=== PATIENT | male | born 1980 | race Caucasian/White ===

== ENCOUNTER 2016-10-21 08:53 | Emergency (ER) | payer OTHER ==
--- NOTE | 2016-10-21 10:13 | ED ORDER SUMMARY ---
..... Patient: ELENITA STEPHENS OrderSheet [facility] VisitID: [id number] [place] [address] 36y, M Registration Date/Time: 10/21/2016 ORDER SHEET Weight: 136.0 kg (stated) Allergies: None GENERAL ORDERS: Business Process Engineer (Continuous) (09:10/21/2016 JBoardley R.N. per protocol) (9:01 JBoardley R.N.) Chest 1V Urgent (09:10/21/2016 JBoardley R.N. per protocol) (Ack 9:03 PWeiler ER Tech1) (9:15 PWeiler ER Tech1) Cardiac Panel Stat (09:10/21/2016 JBoardley R.N. per protocol) (Ack 9:03 PWeiler ER Tech1) (9:06 JBoardley R.N.) (Cancelled: Duplicate Order9:11 Ash Cui) Oxygen (2 L/min) (NC) (09:01 10/21/2016 JBoardley R.N. per protocol) (9:01 JBoardley R.N.) EKG - ER Stat (09:10/21/2016 JBoardley R.N. per protocol) (9:01 JBoardley R.N.) Pulse oximeter (09:10/21/2016 JBoardley R.N. per protocol) (9:01 JBoardley R.N.) CBC w Diff Urgent (09:12 10/21/2016 Ash Cui) (Ack 9:15 PWeiler ER Tech1) (9:18 JBoardley R.N.) CMP Urgent (09:12 10/21/2016 Ash Cui) (Ack 9:15 PWeiler ER Tech1) (9:18 JBoardley R.N.) Troponin-I Urgent (09:12 10/21/2016 Ash Cui) (Ack 9:15 PWeiler ER Tech1) (9:18 JBoardley R.N.) Lipase Urgent (09:23 10/21/2016 Ash Cui) (Ack 9:26 PWeiler ER Tech1) (9:31 PWeiler ER Tech1) MEDICATION ORDERS: GI Cocktail WHITE PO 30 mL (NOW) (09:12 10/21/2016 Ash Cui) (Ack 9:14 JBoardley R.N.) (9:19 JBoardley R.N.) IV FLUIDS: IV Saline Lock (09:02 10/21/2016 JBoardley R.N. per protocol) (9:06 JBoardley R.N.) ORDER SHEET NOTES: [Electronically signed by Harry Yoder Dr. (10:10/21/2016)] [Electronically signed by Leif Mcconnell R.N. (10:10/21/2016)] [Electronically locked/signed by Leif Mcconnell R.N. (10:10/21/2016)]
--- NOTE | 2016-10-21 10:13 | ED CLINICAL REPORT ---
Clinical Report - Physicians/Mid Levels [facility] [address] [place] [address] 10/21/2016 8:53 Patient: ELENITA STEPHENS Time Seen: 851. Arrived- By ambulance. Historian- patient and EMS personnel. HISTORY OF PRESENT ILLNESS Chief Complaint: CHEST PAIN. At its maximum, severity described as mild. When seen in the E.D., severity described as mild. Modifying factors. Not worsened by anything. Not relieved by anything. It is described as dull and it is described as located in the upper back. No radiation. This started yesterday 4 PM and is still present (unchanged). It was abrupt in onset and has been constant but is not gone now. The patient cannot recall the circumstances at the onset. No nausea, vomiting, difficulty breathing or diaphoresis. (reports no recent trauma, surgeries, hemoptysis, unilateral leg swelling, or prolonged immobilization.). No additional chest pain. Similar symptoms previously: Once. ( was told it was anxiety at [facility]). Recent medical care: Not recently seen/assessed. REVIEW OF SYSTEMS The patient has had constant abdominal pain (chronic). The pain is described as located in the epigastrium. This abdominal pain is similar to previous symptoms. All systems otherwise negative, except as recorded above. PAST HISTORY Denies the following risk factors for DVT/PE - history of DVT and pulmonary embolism, recent surgery, recent [place] and congestive heart failure. Denies the following risk factors for DVT/PE - cancer, clotting disorder, estrogens, obesity and immobility. Denies the following risk factors for DVT/PE - advanced in age and vena cava filter. SOCIAL HISTORY Smoker- current status unknown. History of occasional drug use: marijuana. No alcohol use. No recent travel. Is a local resident. FAMILY HISTORY No history of heart disease or aortic aneurysm or dissection. grandfather with hx of early onset CA. ADDITIONAL NOTES The nursing notes have been reviewed. PHYSICAL EXAM Vital Signs: 10/21/2016 08:52 BP: 126/63. HR: 71. RR: 18. O2 saturation: 99%. Temp: 98.2 F. Pain level now: 310. Appearance: Alert. Oriented X3. No acute distress. Eyes: Pupils equal, round and reactive to light. Eyes normal inspection. ENT: Ears normal. Nose normal. Pharynx normal. Neck: Normal inspection. Neck supple. CVS: Normal heart rate and rhythm. Heart sounds normal. Pulses normal. No decreased pulses. Respiratory: No respiratory distress. Breath sounds normal. Chest nontender. No rales, rhonchi or wheezes. Abdomen: Soft. Mild tenderness in the epigastric area. No guarding, rebound tenderness or Martinez's, obturator or psoas sign present. Bowel sounds normal. No organomegaly. No mass. Back: Normal external inspection. (no midline tenderness. Bilateral upper paraspinal muscle spasms and tenderness. No overlying skin changes. No crepitus. No step-offs.). Skin: Skin warm and dry. Normal skin color. No rash. Normal skin turgor. Extremities: Extremities exhibit normal ROM. No lower extremity edema. LABS, X-RAYS, AND EKG EKG: No acute process. No acute ischemia. Normal EKG. Normal sinus rhythm. Rate: 72. Normal P waves. Normal GENNARO. Normal QRS complex. Normal axis. Normal ST and T waves, QT and QTc. Prior EKG unavailable. The study has been interpreted contemporaneously. The study has been independently viewed by me. The EKG appears to be a good tracing. Chest X-ray: No acute disease. Normal lung markings present. No infiltrate. (no apical capping. Mediastinum is normal with.). Views: AP (portable). The X-rays were independently viewed by me, interpreted by the radiologist and discussed with the radiologist. Laboratory Tests: CBC w Diff: (ALYSSA: 10/21/2016 09:00) ( MsgRcvd 10/21/2016 09:11) Final results Test Result Flag Units (Reference) WHITE BLOOD COUNT 4.8 K/uL (4.5-11.5) RED BLOOD COUNT 4.42 L M/uL (4.50-5.90) HEMOGLOBIN 13.8 gm/dL (13.5-17.5) HEMATOCRIT 39.8 L % (41.0-53.0) MEAN CELL VOLUME 90 fL (80-100) MEAN CORPUSCULAR HGB 31 pg (26-34) MEAN CORPUSCULAR HGB CONC 35 g/dL (31-37) RED CELL DISTRIBUTION WIDTH 11.9 % (11.6-14.8) PLATELET COUNT 217 K/uL (150-400) NEUTROPHIL % 60.7 % (50-75) LYMPH % 27.1 % (25-40) MONO % 8.5 % (3-14) EOSINOPHIL % 3.1 % (0-4) BASOPHIL % 0.6 % (0-2) CHEM 13 PANEL: (ALYSSA: 10/21/2016 09:00) ( MsgRcvd 10/21/2016 09:40) Final results Test Result Flag Units (Reference) GLUCOSE 133 H mg/dL (70-110) BUN 14 mg/dL (7-18) CREATININE 1.0 mg/dL (0.6-1.3) Estimated GFR >60 mL/min Estimated GFR- >60 mL/min Note: Persistent reduction over 3 months in eGFR<60 mL/min/1.73 m2 defines CKD. Patients with eGFR values>=60 mL/min/1.73 m2 may also have CKD if evidence ofpersistent proteinuria. Additional information may be foundat www.kidney.org. SODIUM 141 mmol/L (136-145) POTASSIUM 4.0 mmol/L (3.5-5.1) CHLORIDE 105 mmol/L (98-107) CARBON DIOXIDE 25 mmol/L (21-32) CALCIUM 8.7 mg/dL (8.5-10.1) TOTAL PROTEIN 7.2 g/dL (6.4-8.2) ALBUMIN 3.8 g/dL (3.3-5.0) BILIRUBIN, TOTAL 0.7 mg/dL (0.0-1.0) ALKALINE PHOSPHATASE 68 U/L (46-116) AST (SGOT) 26 U/L (15-37) ALT (SGPT) 75 U/L (12-78) MAGNESIUM 1.7 L mg/dL (1.8-2.4) CPK 169 U/L (24-260) TROPONIN I <0.05 L ng/mL (0.00-1.5) TROPONIN REFERENCE RANGE:<0.1 NEGATIVE0.1-1.5 INDETERMINANT>1.5 POSITIVE LIPASE 150 U/L (73-393) . PROGRESS AND PROCEDURES Course of Care: the patient is a pleasant 36-year-old male presenting for evaluation of chest pain and upper back pain. At this time differential diagnosis includes pneumonia, esophagitis, reflux, acute myocardial infarction, pulmonary embolism. Patient isn't currently PRC negative. Patient is resting in bed and in no acute distress. Because of the patient's symptoms, we'll provide the patient with a GI cocktail for regards to potential reflux-type of symptoms. Chest x-ray and laboratory studies and EKG up and ordered for evaluation of other etiologies of patient's discomfort at this time. Vital signs of been reviewed on triage and noted to be unremarkable. Patient is agreeable to the treatment and plan. The patient's workup was remarkable for the findings above. No signs of elevation in troponin. Chest x-rays clear. EKG also does not show any signs of acute ischemia or strain. Patient is noted to be PERC negative. Do not feel further workup for pulmonary embolism is required at this time. Low clinical suspicion for aortic dissection. Patient was reevaluated after the laboratory studies and imaging has been performed. Head discussion with patient in regards his workup in the emergency department. Patient expressed relief when discussing the normal laboratory results and imaging as well as EKG. Patient states that he did not feel the GI cocktail helped however states that his pain is improved since being here.. The patient expressed concerns for the hospital bill. Patient states that he did not want to come here via ambulance and wanted to be evaluated in a clinic setting. Offered patient contact with the financial office. t this time will be respectful for the patient's concern for his bill. Recommended patient have outpatient Evaluation and continuation of care. Discussed with the patient is workup here in the emergency department including diagnosis, home care, follow-up, and return precautions. All questions have been answered. The patient expressed understanding of these instructions and was agreeable to them. CLINICAL IMPRESSION 10/21/2016 09:40 BP: 118/68. HR: 74. RR: 14. O2 saturation: 100%. Blood pressure normal. Oxygen saturation normal. Atypical chest pain .12 lead EKG performed. INSTRUCTIONS Warnings: GENERAL WARNINGS: Return or contact your physician immediately if your condition worsens or changes unexpectedly, if not improving as expected, or if other problems arise. SPECIFICALLY, return if you develop chest, neck, jaw, shoulder, arm, or back pain, difficulty breathing, a fluttering sensation in your chest, lightheadedness, fainting, excessive fatigue, or sudden sweating. Your Current Medications: CONTINUE TAKING THE FOLLOWING MEDICATIONS: None*. Prescription Medications: Flexeril 10 mg: take 1 orally every 8 hours as needed for muscle spasm or pain. Dispense thirty (30). No refills. Substitution is permissible. Follow-up: Return to the emergency department as needed. Follow up with your doctor in three days. Reason for referral: recheck today's concerns. Summary of care provided to patient via paper. Screening today revealed the patient's blood pressure to be in the normal range. The patient should follow up with a primary care provider for blood pressure management. Understanding of the discharge instructions verbalized by patient. (Electronically signed by Harry Yoder Dr. 10/21/2016 10:21)
--- NOTE | 2016-10-21 10:13 | ED ORDER SUMMARY ---
..... Patient: ELENITA STEPHENS OrderSheet [facility] VisitID: [id number] [place] [address] 36y, M Registration Date/Time: 10/21/2016 ORDER SHEET Weight: 136.0 kg (stated) Allergies: None GENERAL ORDERS: Bezel Cutter (Continuous) (09:10/21/2016 JBoardley R.N. per protocol) (9:01 JBoardley R.N.) Chest 1V Urgent (09:10/21/2016 JBoardley R.N. per protocol) (Ack 9:03 PWeiler ER Tech1) (9:15 PWeiler ER Tech1) Cardiac Panel Stat (09:10/21/2016 JBoardley R.N. per protocol) (Ack 9:03 PWeiler ER Tech1) (9:06 JBoardley R.N.) (Cancelled: Duplicate Order9:11 Ash Cui) Oxygen (2 L/min) (NC) (09:01 10/21/2016 JBoardley R.N. per protocol) (9:01 JBoardley R.N.) EKG - ER Stat (09:10/21/2016 JBoardley R.N. per protocol) (9:01 JBoardley R.N.) Pulse oximeter (09:10/21/2016 JBoardley R.N. per protocol) (9:01 JBoardley R.N.) CBC w Diff Urgent (09:12 10/21/2016 Ash Cui) (Ack 9:15 PWeiler ER Tech1) (9:18 JBoardley R.N.) CMP Urgent (09:12 10/21/2016 Ash Cui) (Ack 9:15 PWeiler ER Tech1) (9:18 JBoardley R.N.) Troponin-I Urgent (09:12 10/21/2016 Ash Cui) (Ack 9:15 PWeiler ER Tech1) (9:18 JBoardley R.N.) Lipase Urgent (09:23 10/21/2016 Ash Cui) (Ack 9:26 PWeiler ER Tech1) (9:31 PWeiler ER Tech1) MEDICATION ORDERS: GI Cocktail WHITE PO 30 mL (NOW) (09:12 10/21/2016 Ash Cui) (Ack 9:14 JBoardley R.N.) (9:19 JBoardley R.N.) IV FLUIDS: IV Saline Lock (09:02 10/21/2016 JBoardley R.N. per protocol) (9:06 JBoardley R.N.) ORDER SHEET NOTES: [Electronically signed by Harry Yoder Dr. (10:10/21/2016)] [Electronically signed by Leif Mcconnell R.N. (10:10/21/2016)] [Electronically locked/signed by Leif Mcconnell R.N. (10:10/21/2016)]
--- NOTE | 2016-10-21 10:13 | ED NURSING NOTES ---
Clinical Report - Nurses [facility] [address] [place] [address] 10/21/2016 8:53 Patient: ELENITA STEPHENS TRIAGE Triage time 08:52 Oct 21 2016. Acuity: LEVEL 3. Chief Complaint: CHEST PAIN. 08:53 10/21/16. 08:53 10/21/16. Alert. No acute distress. ( Pt states he has constant discomfort in his chest and back. Pt states he has a history of anxiety.). SEPSIS SCREEN: Sepsis Screen. Negative (no infection suspected/documented). --08:59 Leif Mcconnell R.N. 08:52 10/21/16. BP: 126/63. HR: 71. RR: 18. O2 saturation: 99% on room air. Temp: 98.2 F (oral). Pain level now: 07/25. --08:59 Leif Mcconnell R.N. Weight: 136 kg stated. Height/Length: 75 inches Per Patient. BMI: 37.5. --08:57 Leif Mcconnell R.N. Medications None. --08:57 Leif Mcconnell R.N. Medication/allergy information source: the patient and EMS. --08:59 Leif Mcconnell R.N. Allergies None. --08:58 Leif Mcconnell R.N. History Arrived by EMS. Historian: patient. Unaccompanied. Primary physician (NONE). 08:53 10/21/16. This started yesterday. Onset. (at 1600). The patient has had difficulty breathing and nausea. Reports experiencing sweating episodes. No vomiting. Treatment FORESTRY PATROLMAN: (NTG and ASA). PAST MEDICAL HX: Immunizations: status is unknown. SOCIAL HX: Current every day heavy tobacco smoker (cigarette)- less than 1 pack per day. Occasional alcohol use; consumes 12-pack of beer a week. History of occasional drug use: marijuana. FALL RISK ASSESSMENT: Fall risk assessment completed. No fall risk identified. NUTRITIONAL RISK ASSESSMENT: The nutritional risk assessment revealed no deficiencies. FUNCTIONAL ASSESSMENT: Functional assessment: no impairments noted. LEARNING NEEDS ASSESSMENT: The learning needs assessment revealed no barriers. SKIN INTEGRITY ASSESSMENT: Skin integrity risk assessment completed. No skin integrity risk identified. --08:59 Leif Mcconnell R.N. Treatment FORESTRY PATROLMAN: See EMS report. ( NTG SL, ASA, Right Hand IV 18 gauge IV placed by EMS). --09:00 Leif Mcconnell R.N. PROBLEMS: Pneumothorax. Stabbing. Anxiety disorder. --08:59 Leif Mcconnell R.N. ADDITIONAL SURGERIES: no known surgeries. Assessment 08:53 10/21/16. --08:59 Leif Mcconnell R.N. Interventions 08:53 10/21/16. 08:53 10/21/16. ID and allergy band on patient. To treatment room. --08:59 Leif Mcconnell R.N. PHYSICAL ASSESSMENT 08:59 10/21/16. To room via stretcher. GENERAL / NEURO / PSYCH: Alert. Oriented X 4. Appears in no acute distress. RESPIRATORY: Respirations not labored. CVS: Normal sinus rhythm noted. Capillary refill less than 2 seconds. SKIN: Skin is warm and dry. --08:59 Leif Mcconnell R.N. NURSING PROGRESS NOTES 08:56 10/21/2016 Site #1 started prior to arrival by EMS via IV in the right hand with an 18g angiocath. Blood drawn: rainbow set. --09:06 Leif Mcconnell R.N. 08:59 10/21/16. EKG time: (0859). EKG was ordered, performed by a tech and shown to the ED physician. Two patient identifiers checked. Call light placed in reach. Side rails up x 2. Bed placed in lowest position. Brakes of bed on. Patient ready for evaluation- chart flagged and notification provided. --08:59 Leif Mcconnell R.N. 09:00 10/21/16. The plan of care for this patient has been created. Oxygen administered at 2 liters. campus monitor, pulse oximeter and NIBP monitor placed on patient; monitor alarms on. Patient gowned. Head of bed elevated. Reassurance given. --09:00 Leif Mcconnell R.N. 09:19 10/21/2016 GI COCKTAIL WHITE (Simethicone) PO 30 mL given. Allergies verified and confirmed 5 rights. --09:19 Leif Mcconnell R.N. 09:19 10/21/16. Cardiac rhythm: normal sinus rhythm. --09:19 Leif Mcconnell R.N. 09:19 10/21/16. BP: 118/65. HR: 76. RR: 13. O2 saturation: 100% on nasal cannula at 2 liters/minute. --09:19 Leif Mcconnell R.N. 09:19 10/21/16. Patient informed about reason for wait and about plan of care. --09:19 Leif Mcconnell R.N. 09:41 10/21/16. Cardiac rhythm: normal sinus rhythm. --09:41 Leif Mcconnell R.N. 09:40 10/21/16. BP: 118/68. HR: 74. RR: 14. O2 saturation: 100% on nasal cannula at 2 liters/minute. --09:41 Leif Mcconnell R.N. 09:47 10/21/16. Reassessment after medication administered. He reports no complaints, he is calm and resting quietly and he has had no adverse reaction. Overall patient status is the same- he states feels the same. --09:47 Leif Mcconnell R.N. 09:47 10/21/16. Patient informed about reason for wait and about plan of care. --09:48 Leif Mcconnell R.N. 09:48 10/21/16. Patient waiting for lab results. --09:48 Leif Mcconnell R.N. DISPOSITION / DISCHARGE 10:20 10/21/2016 Site #1 removed upon discharge. Catheter intact. Bandage applied. --10:20 Leif Mcconnell R.N. 10:21 10/21/16. Cardiac rhythm: normal sinus rhythm. Condition at departure: improved. The goals identified in the patient's plan of care were met. No learning barriers present. Discharge instructions provided and reviewed with the patient. Reviewed warnings. Reviewed medication(s). Treatments reviewed. Patient verbalized understanding. Written instructions provided in Malay. The patient was discharged by the physician. He was discharged home and accompanied by family. He left the Emergency Department ambulatory and via private vehicle. Family member driving. FALL RISK ASSESSMENT: Fall risk assessment completed. No fall risk identified. --10:21 Leif Mcconnell R.N. 10:20 10/21/16. BP: 122/67. HR: 78. RR: 14. O2 saturation: 100% on room air. Temp: 98.2 F (oral). Pain level now: 05/27. --10:21 Leif Mcconnell R.N. 10:21 10/21/16. Departure time: 10:Oct 21 2016. --10:21 Leif Mcconnell R.N. Locked/Released at 10/21/2016 10:24 by Leif Mcconnell R.N.
--- NOTE | 2016-10-21 10:13 | ED NURSING NOTES ---
Clinical Report - Nurses [facility] [address] [place] [address] 10/21/2016 8:53 Patient: ELENITA STEPHENS TRIAGE Triage time 08:52 Oct 21 2016. Acuity: LEVEL 3. Chief Complaint: CHEST PAIN. 08:53 10/21/16. 08:53 10/21/16. Alert. No acute distress. ( Pt states he has constant discomfort in his chest and back. Pt states he has a history of anxiety.). SEPSIS SCREEN: Sepsis Screen. Negative (no infection suspected/documented). --08:59 Leif Mcconnell R.N. 08:52 10/21/16. BP: 126/63. HR: 71. RR: 18. O2 saturation: 99% on room air. Temp: 98.2 F (oral). Pain level now: 07/25. --08:59 Leif Mcconnell R.N. Weight: 136 kg stated. Height/Length: 75 inches Per Patient. BMI: 37.5. --08:57 Leif Mcconnell R.N. Medications None. --08:57 Leif Mcconnell R.N. Medication/allergy information source: the patient and EMS. --08:59 Leif Mcconnell R.N. Allergies None. --08:58 Leif Mcconnell R.N. History Arrived by EMS. Historian: patient. Unaccompanied. Primary physician (NONE). 08:53 10/21/16. This started yesterday. Onset. (at 1600). The patient has had difficulty breathing and nausea. Reports experiencing sweating episodes. No vomiting. Treatment MATERIALS HANDLING COORDINATOR: (NTG and ASA). PAST MEDICAL HX: Immunizations: status is unknown. SOCIAL HX: Current every day heavy tobacco smoker (cigarette)- less than 1 pack per day. Occasional alcohol use; consumes 12-pack of beer a week. History of occasional drug use: marijuana. FALL RISK ASSESSMENT: Fall risk assessment completed. No fall risk identified. NUTRITIONAL RISK ASSESSMENT: The nutritional risk assessment revealed no deficiencies. FUNCTIONAL ASSESSMENT: Functional assessment: no impairments noted. LEARNING NEEDS ASSESSMENT: The learning needs assessment revealed no barriers. SKIN INTEGRITY ASSESSMENT: Skin integrity risk assessment completed. No skin integrity risk identified. --08:59 Leif Mcconnell R.N. Treatment MATERIALS HANDLING COORDINATOR: See EMS report. ( NTG SL, ASA, Right Hand IV 18 gauge IV placed by EMS). --09:00 Leif Mcconnell R.N. PROBLEMS: Pneumothorax. Stabbing. Anxiety disorder. --08:59 Leif Mcconnell R.N. ADDITIONAL SURGERIES: no known surgeries. Assessment 08:53 10/21/16. --08:59 Leif Mcconnell R.N. Interventions 08:53 10/21/16. 08:53 10/21/16. ID and allergy band on patient. To treatment room. --08:59 Leif Mcconnell R.N. PHYSICAL ASSESSMENT 08:59 10/21/16. To room via stretcher. GENERAL / NEURO / PSYCH: Alert. Oriented X 4. Appears in no acute distress. RESPIRATORY: Respirations not labored. CVS: Normal sinus rhythm noted. Capillary refill less than 2 seconds. SKIN: Skin is warm and dry. --08:59 Leif Mcconnell R.N. NURSING PROGRESS NOTES 08:56 10/21/2016 Site #1 started prior to arrival by EMS via IV in the right hand with an 18g angiocath. Blood drawn: rainbow set. --09:06 Leif Mcconnell R.N. 08:59 10/21/16. EKG time: (0859). EKG was ordered, performed by a tech and shown to the ED physician. Two patient identifiers checked. Call light placed in reach. Side rails up x 2. Bed placed in lowest position. Brakes of bed on. Patient ready for evaluation- chart flagged and notification provided. --08:59 Leif Mcconnell R.N. 09:00 10/21/16. The plan of care for this patient has been created. Oxygen administered at 2 liters. cmv driver, pulse oximeter and NIBP monitor placed on patient; monitor alarms on. Patient gowned. Head of bed elevated. Reassurance given. --09:00 Leif Mcconnell R.N. 09:19 10/21/2016 GI COCKTAIL WHITE (Simethicone) PO 30 mL given. Allergies verified and confirmed 5 rights. --09:19 Leif Mcconnell R.N. 09:19 10/21/16. Cardiac rhythm: normal sinus rhythm. --09:19 Leif Mcconnell R.N. 09:19 10/21/16. BP: 118/65. HR: 76. RR: 13. O2 saturation: 100% on nasal cannula at 2 liters/minute. --09:19 Leif Mcconnell R.N. 09:19 10/21/16. Patient informed about reason for wait and about plan of care. --09:19 Leif Mcconnell R.N. 09:41 10/21/16. Cardiac rhythm: normal sinus rhythm. --09:41 Leif Mcconnell R.N. 09:40 10/21/16. BP: 118/68. HR: 74. RR: 14. O2 saturation: 100% on nasal cannula at 2 liters/minute. --09:41 Leif Mcconnell R.N. 09:47 10/21/16. Reassessment after medication administered. He reports no complaints, he is calm and resting quietly and he has had no adverse reaction. Overall patient status is the same- he states feels the same. --09:47 Leif Mcconnell R.N. 09:47 10/21/16. Patient informed about reason for wait and about plan of care. --09:48 Leif Mcconnell R.N. 09:48 10/21/16. Patient waiting for lab results. --09:48 Leif Mcconnell R.N. DISPOSITION / DISCHARGE 10:20 10/21/2016 Site #1 removed upon discharge. Catheter intact. Bandage applied. --10:20 Leif Mcconnell R.N. 10:21 10/21/16. Cardiac rhythm: normal sinus rhythm. Condition at departure: improved. The goals identified in the patient's plan of care were met. No learning barriers present. Discharge instructions provided and reviewed with the patient. Reviewed warnings. Reviewed medication(s). Treatments reviewed. Patient verbalized understanding. Written instructions provided in [place]. The patient was discharged by the physician. He was discharged home and accompanied by family. He left the Emergency Department ambulatory and via private vehicle. Family member driving. FALL RISK ASSESSMENT: Fall risk assessment completed. No fall risk identified. --10:21 Leif Mcconnell R.N. 10:20 10/21/16. BP: 122/67. HR: 78. RR: 14. O2 saturation: 100% on room air. Temp: 98.2 F (oral). Pain level now: 05/27. --10:21 Leif Mcconnell R.N. 10:21 10/21/16. Departure time: 10:Oct 21 2016. --10:21 Leif Mcconnell R.N. Locked/Released at 10/21/2016 10:24 by Leif Mcconnell R.N.
--- NOTE | 2016-10-21 10:17 | DIAGNOSTIC IMAGING REPORT ---
PROCEDURE: XR CHEST 1 VIEW INDICATION: CHEST PAIN TECHNIQUE: Portable AP view 9:11 a.m. COMPARISON: None. FINDINGS: Lungs are clear. Heart and mediastinum are normal. Thorax is normal. IMPRESSION: 1. Negative chest.
--- NOTE | 2016-10-21 10:24 | ED DISCHARGE INSTRUCTIONS ---
Patient: ELENITA STEPHENS General Instructions [facility] VisitID: [id number] [place] [address] 36y, M Registration Date/Time: 10/21/2016 10/21/2016 09:40 BP: 118/68. HR: 74. RR: 14. O2 saturation: 100%. Blood pressure normal. Oxygen saturation normal. Atypical chest pain .12 lead EKG performed. INSTRUCTIONS Warnings: GENERAL WARNINGS: Return or contact your physician immediately if your condition worsens or changes unexpectedly, if not improving as expected, or if other problems arise. SPECIFICALLY, return if you develop chest, neck, jaw, shoulder, arm, or back pain, difficulty breathing, a fluttering sensation in your chest, lightheadedness, fainting, excessive fatigue, or sudden sweating. Your Current Medications: CONTINUE TAKING THE FOLLOWING MEDICATIONS: None*. Prescription Medications: Flexeril 10 mg: take 1 orally every 8 hours as needed for muscle spasm or pain. Dispense thirty (30). No refills. Substitution is permissible. Follow-up: Return to the emergency department as needed. Follow up with your doctor in three days. Reason for referral: recheck today's concerns. Summary of care provided to patient via paper. Screening today revealed the patient's blood pressure to be in the normal range. The patient should follow up with a primary care provider for blood pressure management. Understanding of the discharge instructions verbalized by patient. ADDITIONAL INFORMATION Chest Pain, Uncertain Cause Chest pain can happen for a number of reasons. Sometimes the cause can not be determined. If yourcondition does not seem serious, and your pain does not appear to be coming from your heart, your doctor may recommend watching it closely. Sometimes the signs of a serious problem take more time to appear. Therefore, watch for the warning signs listed below. Home care After your visit, follow these recommendations: Rest today and avoid strenuous activity. Take any prescribed medicine as directed. Follow-up care Follow up with your doctor or this facility as instructed or if you do not start to feel better within 24 hours. Call 911 Get immediate medical attention if any of the following occur: A change in the type of pain: if it feels different, becomes more severe, lasts longer, or begins to spread into your shoulder, arm, neck, jaw or back Shortness of breath or increased pain with breathing Weakness, dizziness, or fainting Rapid heart beat Get prompt medical attention Call your doctor right away if any of the following occur: Cough with dark colored sputum (phlegm) or blood Fever of 100.4F(38C) or higher, or as directed by your health care provider Swelling, pain or redness in one leg Cyclobenzaprine Hydrochloride Oral tablet What is this medicine? CYCLOBENZAPRINE (tori baptiste) is a muscle relaxer. It is used to treat muscle pain, spasms, and stiffness. How should I use this medicine? Take this medicine by mouth with a glass of water. Follow the directions on the prescription label. If this medicine upsets your stomach, take it with food or milk. Take your medicine at regular intervals. Do not take it more often than directed. Talk to your cafe server regarding the use of this medicine in children. Special care may be needed. What side effects may I notice from receiving this medicine? Side effects that you should report to your doctor or health neonatal critical care nurse as soon as possible: allergic reactions like skin rash, itching or hives, swelling of the face, lips, or tongue chest pain fast heartbeat hallucinations seizures vomiting Side effects that usually do not require medical attention (report to your doctor or health neonatal critical care nurse if they continue or are bothersome): headache What may interact with this medicine? Do not take this medicine with any of the following medications: cisapride droperidol flecainide grepafloxacin halofantrine levomethadyl MAOIs like Carbex, Eldepryl, Marplan, Nardil, and Parnate nilotinib pimozide probucol sertindole This medicine may also interact with the following medications: abarelix alcohol contrast dyes dolasetron guanethidine medicines for cancer medicines for depression, anxiety, or psychotic disturbances medicines to treat an irregular heartbeat medicines used for sleep or numbness during surgery or procedure methadone octreotide ondansetron palonosetron phenothiazines like chlorpromazine, mesoridazine, prochlorperazine, thioridazine some medicines for infection like alfuzosin, chloroquine, clarithromycin, levofloxacin, mefloquine, pentamidine, troleandomycin tramadol vardenafil What if I miss a dose? If you miss a dose, take it as soon as you can. If it is almost time for your next dose, take only that dose. Do not take double or extra doses. Where should I keep my medicine? Keep out of the reach of children. Store at room temperature between 15 and 30 degrees C (59 and 86 degrees F). Keep container tightly closed. Throw away any unused medicine after the expiration date. What should I tell my health care provider before I take this medicine? They need to know if you have any of these conditions: heart disease, irregular heartbeat, or previous heart attack liver disease thyroid problem an unusual or allergic reaction to cyclobenzaprine, tricyclic antidepressants, lactose, other medicines, foods, dyes, or preservatives or trying to get breast-feeding What should I watch for while using this medicine? Check with your doctor or health neonatal critical care nurse if your condition does not improve within 1 to 3 weeks. You may get drowsy or dizzy when you first start taking the medicine or change doses. Do not drive, use machinery, or do anything that may be dangerous until you know how the medicine affects you. Stand or sit up slowly. Your mouth may get dry. Drinking water, chewing sugarless gum, or sucking on hard candy may help. You have been given the following additional information: Chest Pain, Uncertain Cause Cyclobenzaprine Hydrochloride Oral tablet (Electronically signed by Harry Yoder Dr. 10/21/2016 10:21)
--- NOTE | 2016-10-21 10:24 | ED DISCHARGE INSTRUCTIONS ---
Patient: ELENITA STEPHENS General Instructions [facility] VisitID: [id number] [place] [address] 36y, M Registration Date/Time: 10/21/2016 10/21/2016 09:40 BP: 118/68. HR: 74. RR: 14. O2 saturation: 100%. Blood pressure normal. Oxygen saturation normal. Atypical chest pain .12 lead EKG performed. INSTRUCTIONS Warnings: GENERAL WARNINGS: Return or contact your physician immediately if your condition worsens or changes unexpectedly, if not improving as expected, or if other problems arise. SPECIFICALLY, return if you develop chest, neck, jaw, shoulder, arm, or back pain, difficulty breathing, a fluttering sensation in your chest, lightheadedness, fainting, excessive fatigue, or sudden sweating. Your Current Medications: CONTINUE TAKING THE FOLLOWING MEDICATIONS: None*. Prescription Medications: Flexeril 10 mg: take 1 orally every 8 hours as needed for muscle spasm or pain. Dispense thirty (30). No refills. Substitution is permissible. Follow-up: Return to the emergency department as needed. Follow up with your doctor in three days. Reason for referral: recheck today's concerns. Summary of care provided to patient via paper. Screening today revealed the patient's blood pressure to be in the normal range. The patient should follow up with a primary care provider for blood pressure management. Understanding of the discharge instructions verbalized by patient. ADDITIONAL INFORMATION Chest Pain, Uncertain Cause Chest pain can happen for a number of reasons. Sometimes the cause can not be determined. If yourcondition does not seem serious, and your pain does not appear to be coming from your heart, your doctor may recommend watching it closely. Sometimes the signs of a serious problem take more time to appear. Therefore, watch for the warning signs listed below. Home care After your visit, follow these recommendations: Rest today and avoid strenuous activity. Take any prescribed medicine as directed. Follow-up care Follow up with your doctor or this facility as instructed or if you do not start to feel better within 24 hours. Call 911 Get immediate medical attention if any of the following occur: A change in the type of pain: if it feels different, becomes more severe, lasts longer, or begins to spread into your shoulder, arm, neck, jaw or back Shortness of breath or increased pain with breathing Weakness, dizziness, or fainting Rapid heart beat Get prompt medical attention Call your doctor right away if any of the following occur: Cough with dark colored sputum (phlegm) or blood Fever of 100.4F(38C) or higher, or as directed by your health care provider Swelling, pain or redness in one leg Cyclobenzaprine Hydrochloride Oral tablet What is this medicine? CYCLOBENZAPRINE (tori baptiste) is a muscle relaxer. It is used to treat muscle pain, spasms, and stiffness. How should I use this medicine? Take this medicine by mouth with a glass of water. Follow the directions on the prescription label. If this medicine upsets your stomach, take it with food or milk. Take your medicine at regular intervals. Do not take it more often than directed. Talk to your hammer operator regarding the use of this medicine in children. Special care may be needed. What side effects may I notice from receiving this medicine? Side effects that you should report to your doctor or health chronic care nurse as soon as possible: allergic reactions like skin rash, itching or hives, swelling of the face, lips, or tongue chest pain fast heartbeat hallucinations seizures vomiting Side effects that usually do not require medical attention (report to your doctor or health chronic care nurse if they continue or are bothersome): headache What may interact with this medicine? Do not take this medicine with any of the following medications: cisapride droperidol flecainide grepafloxacin halofantrine levomethadyl MAOIs like Carbex, Eldepryl, Marplan, Nardil, and Parnate nilotinib pimozide probucol sertindole This medicine may also interact with the following medications: abarelix alcohol contrast dyes dolasetron guanethidine medicines for cancer medicines for depression, anxiety, or psychotic disturbances medicines to treat an irregular heartbeat medicines used for sleep or numbness during surgery or procedure methadone octreotide ondansetron palonosetron phenothiazines like chlorpromazine, mesoridazine, prochlorperazine, thioridazine some medicines for infection like alfuzosin, chloroquine, clarithromycin, levofloxacin, mefloquine, pentamidine, troleandomycin tramadol vardenafil What if I miss a dose? If you miss a dose, take it as soon as you can. If it is almost time for your next dose, take only that dose. Do not take double or extra doses. Where should I keep my medicine? Keep out of the reach of children. Store at room temperature between 15 and 30 degrees C (59 and 86 degrees F). Keep container tightly closed. Throw away any unused medicine after the expiration date. What should I tell my health care provider before I take this medicine? They need to know if you have any of these conditions: heart disease, irregular heartbeat, or previous heart attack liver disease thyroid problem an unusual or allergic reaction to cyclobenzaprine, tricyclic antidepressants, lactose, other medicines, foods, dyes, or preservatives or trying to get breast-feeding What should I watch for while using this medicine? Check with your doctor or health chronic care nurse if your condition does not improve within 1 to 3 weeks. You may get drowsy or dizzy when you first start taking the medicine or change doses. Do not drive, use machinery, or do anything that may be dangerous until you know how the medicine affects you. Stand or sit up slowly. Your mouth may get dry. Drinking water, chewing sugarless gum, or sucking on hard candy may help. You have been given the following additional information: Chest Pain, Uncertain Cause Cyclobenzaprine Hydrochloride Oral tablet (Electronically signed by Harry Yoder Dr. 10/21/2016 10:21)
--- NOTE | 2016-10-21 10:24 | ED MAR SUMMARY ---
..... Medication Administration Record [facility] [address] [place] [address] Patient: ELENITA STEPHENS Visit ID: [id number] 36y, M Weight: 136.0 kg Height/Length: 75 in BMI: 37.5 ALLERGIES: None Given 09:19 10/21/2016 Leif Mcconnell R.N. Medication Administered: GI COCKTAIL WHITE [PO] (SIMETHICONE), Dose: 30 mL PO. Medication Ordered: GI Cocktail WHITE PO 30 mL (NOW).
--- NOTE | 2016-10-21 10:24 | ED MED RECONCILIATION SUMMARY ---
Patient: ELENITA STEPHENS Medication Reconciliation Report [facility] VisitID: [id number] [address] [place] [address] 36y, M Registration Date/Time: 10/21/2016 Weight: 136.0 kg Height/Length: 75 in. BMI: 37.5 ALLERGIES: None The patient's Home Medications are listed below: NONE. The source(s) of the original Home Medication information: EMS patient The following Medications were given to the patient in the Emergency Department: GI COCKTAIL WHITE [PO] PO 30 mL, administered: 10/21/2016 9:19:00 AM The following Medications were prescribed to the patient: Flexeril 10 mg: take 1 orally every 8 hours as needed for muscle spasm or pain. Dispense thirty (30). No refills. Substitution is permissible. -- Harry Yoder Dr.
--- NOTE | 2016-10-21 10:24 | ED MAR SUMMARY ---
..... Medication Administration Record [facility] [address] [place] [address] Patient: ELENITA STEPHENS Visit ID: [id number] 36y, M Weight: 136.0 kg Height/Length: 75 in BMI: 37.5 ALLERGIES: None Given 09:19 10/21/2016 Lefi Mcconnell R.N. Medication Administered: GI COCKTAIL WHITE [PO] (SIMETHICONE), Dose: 30 mL PO. Medication Ordered: GI Cocktail WHITE PO 30 mL (NOW).
--- NOTE | 2016-10-21 10:24 | ED MED RECONCILIATION SUMMARY ---
Patient: ELENITA STEPHENS Medication Reconciliation Report [facility] VisitID: [id number] [address] [place] [address] 36y, M Registration Date/Time: 10/21/2016 Weight: 136.0 kg Height/Length: 75 in. BMI: 37.5 ALLERGIES: None The patient's Home Medications are listed below: NONE. The source(s) of the original Home Medication information: EMS patient The following Medications were given to the patient in the Emergency Department: GI COCKTAIL WHITE [PO] PO 30 mL, administered: 10/21/2016 9:19:00 AM The following Medications were prescribed to the patient: Flexeril 10 mg: take 1 orally every 8 hours as needed for muscle spasm or pain. Dispense thirty (30). No refills. Substitution is permissible. -- Harry Yoder Dr.
== END 2016-10-21 10:21 | disposition home or self-care (01) ==
LOC: EDBD 08:53 → ED SRH 08:53
DX: R07.89 Other chest pain (principal); F17.210 Nicotine dependence, cigarettes, uncomplicated
CPT/HCPCS: 90100; 90616; 92235; 92610; 92720; 95059